=== PATIENT | male | born 1950 | race Hispanic/Latino ===

== ENCOUNTER → 2022-10-10 | Outpatient (CLI) | payer MEDICARE | END | disposition home or self-care (01) | LOC: SHCH 11:08 | PROVIDERS: ATTEND Internal Medicine | DX: Z04.89 Encounter for examination and observation for other specified reasons (principal); I48.0 Paroxysmal atrial fibrillation; I11.9 Hypertensive heart disease without heart failure | CPT/HCPCS: 71046; 93306 ==

== ENCOUNTER → 2022-12-09 | Outpatient (CLI) | payer MEDICARE ==
[~2022-12-09] MED LIST: LIDOCAINE HCL 4% LTA SOL 4 ML VIAL ONE
== END | disposition home or self-care (01) ==
LOC: WHH 09:46
PROVIDERS: ATTEND Nurse Practitioner Family
DX: L89.622 Pressure ulcer of left heel, stage 2 (principal); I48.91 Unspecified atrial fibrillation; I10 Essential (primary) hypertension; M10.09 Idiopathic gout, multiple sites; M19.90 Unspecified osteoarthritis, unspecified site; Z96.652 Presence of left artificial knee joint
CPT/HCPCS: 11042; A6209 ×2; A4450

== ENCOUNTER → 2022-12-16 | Outpatient (CLI) | payer MEDICARE ==
[~2022-12-16] MED LIST changes: +HONEY 1 APPL/ML TUBE TP ONE
== END | disposition home or self-care (01) ==
LOC: WHH 08:49
PROVIDERS: ATTEND Nurse Practitioner Family
DX: L89.622 Pressure ulcer of left heel, stage 2 (principal); I48.91 Unspecified atrial fibrillation; I10 Essential (primary) hypertension; M10.09 Idiopathic gout, multiple sites; M19.90 Unspecified osteoarthritis, unspecified site; Z96.652 Presence of left artificial knee joint; Z79.899 Other long term (current) drug therapy
CPT/HCPCS: G0463; A4450

== ENCOUNTER → 2022-12-23 | Outpatient (CLI) | payer MEDICARE | END | disposition home or self-care (01) | LOC: WHH 09:40 | PROVIDERS: ATTEND Nurse Practitioner Family | DX: L89.622 Pressure ulcer of left heel, stage 2 (principal); I10 Essential (primary) hypertension; I48.91 Unspecified atrial fibrillation; M19.90 Unspecified osteoarthritis, unspecified site; M10.09 Idiopathic gout, multiple sites; Z96.652 Presence of left artificial knee joint; Z79.899 Other long term (current) drug therapy | CPT/HCPCS: 11042; A6209 ==

== ENCOUNTER → 2023-01-06 | Outpatient (CLI) | payer MEDICARE ==
[~2023-01-06] MED LIST changes: -HONEY 1 APPL/ML TUBE TP ONE
== END | disposition home or self-care (01) ==
LOC: WHH 09:43
PROVIDERS: ATTEND Nurse Practitioner Family
DX: L89.622 Pressure ulcer of left heel, stage 2 (principal); I10 Essential (primary) hypertension; I48.91 Unspecified atrial fibrillation; M19.90 Unspecified osteoarthritis, unspecified site; M10.09 Idiopathic gout, multiple sites; Z96.652 Presence of left artificial knee joint; Z79.899 Other long term (current) drug therapy
CPT/HCPCS: 11042; A6209; A4450

== ENCOUNTER → 2023-01-27 | Outpatient (CLI) | payer MEDICARE | END | disposition home or self-care (01) | LOC: WHH 10:02 | PROVIDERS: ATTEND Nurse Practitioner Family | DX: L89.622 Pressure ulcer of left heel, stage 2 (principal); I10 Essential (primary) hypertension; I48.91 Unspecified atrial fibrillation; M19.90 Unspecified osteoarthritis, unspecified site; M10.09 Idiopathic gout, multiple sites; Z96.652 Presence of left artificial knee joint; Z79.899 Other long term (current) drug therapy | CPT/HCPCS: G0463; A6209; A4450 ==

== ENCOUNTER → 2023-02-03 | Outpatient (CLI) | payer MEDICARE | END | disposition home or self-care (01) | LOC: WHH 08:55 | PROVIDERS: ATTEND Nurse Practitioner Family | DX: L89.622 Pressure ulcer of left heel, stage 2 (principal); I10 Essential (primary) hypertension; I48.91 Unspecified atrial fibrillation; M19.90 Unspecified osteoarthritis, unspecified site; M10.09 Idiopathic gout, multiple sites; Z96.652 Presence of left artificial knee joint; Z79.899 Other long term (current) drug therapy | CPT/HCPCS: 11042; A6209; A6022 ==

== ENCOUNTER → 2023-02-10 | Outpatient (CLI) | payer MEDICARE | END | disposition home or self-care (01) | LOC: WHH 08:51 | PROVIDERS: ATTEND Nurse Practitioner Family | DX: L89.623 Pressure ulcer of left heel, stage 3 (principal); I10 Essential (primary) hypertension; I48.91 Unspecified atrial fibrillation; M19.90 Unspecified osteoarthritis, unspecified site; M10.09 Idiopathic gout, multiple sites; Z96.652 Presence of left artificial knee joint; Z79.899 Other long term (current) drug therapy | CPT/HCPCS: 11042; 87070; 87077 ×2; 87186 ×2; 73630; A6197; A6260 ==

== ENCOUNTER → 2023-02-17 | Outpatient (CLI) | payer MEDICARE | END | disposition home or self-care (01) | LOC: WHH 09:51 | PROVIDERS: ATTEND Nurse Practitioner Family | DX: L89.623 Pressure ulcer of left heel, stage 3 (principal); I10 Essential (primary) hypertension; I48.91 Unspecified atrial fibrillation; M19.90 Unspecified osteoarthritis, unspecified site; M10.09 Idiopathic gout, multiple sites; Z96.652 Presence of left artificial knee joint; Z79.899 Other long term (current) drug therapy | CPT/HCPCS: G0463; A6248; A6196 ==

== ENCOUNTER → 2023-02-24 | Outpatient (CLI) | payer MEDICARE ==
[~2023-02-24] MED LIST changes: +GENTAMICIN 15 GM CREAM TP ONE
== END | disposition home or self-care (01) ==
LOC: WHH 09:50
PROVIDERS: ATTEND Nurse Practitioner Family
DX: L89.623 Pressure ulcer of left heel, stage 3 (principal); I10 Essential (primary) hypertension; I48.91 Unspecified atrial fibrillation; M19.90 Unspecified osteoarthritis, unspecified site; M10.09 Idiopathic gout, multiple sites; Z96.652 Presence of left artificial knee joint; Z79.899 Other long term (current) drug therapy
CPT/HCPCS: 11042; A6197; A6022

== ENCOUNTER → 2023-03-03 | Outpatient (CLI) | payer MEDICARE ==
[~2023-03-03] MED LIST changes: -GENTAMICIN 15 GM CREAM TP ONE
== END | disposition home or self-care (01) ==
LOC: WHH 08:47
PROVIDERS: ATTEND Nurse Practitioner Family
DX: L89.623 Pressure ulcer of left heel, stage 3 (principal); I48.91 Unspecified atrial fibrillation; I10 Essential (primary) hypertension; M10.09 Idiopathic gout, multiple sites; M19.90 Unspecified osteoarthritis, unspecified site; Z96.652 Presence of left artificial knee joint; Z79.899 Other long term (current) drug therapy
CPT/HCPCS: 11042; A6248; A6022 ×2; A6197

== ENCOUNTER → 2023-03-17 | Outpatient (CLI) | payer MEDICARE | END | disposition home or self-care (01) | LOC: WHH 08:51 | PROVIDERS: ATTEND Nurse Practitioner Family | DX: L89.623 Pressure ulcer of left heel, stage 3 (principal); I48.91 Unspecified atrial fibrillation; I10 Essential (primary) hypertension; M10.09 Idiopathic gout, multiple sites; M19.90 Unspecified osteoarthritis, unspecified site; Z96.652 Presence of left artificial knee joint; Z79.899 Other long term (current) drug therapy | CPT/HCPCS: 11042 ==

== ENCOUNTER → 2023-03-24 | Outpatient (CLI) | payer MEDICARE | END | disposition home or self-care (01) | LOC: WHH 09:53 | PROVIDERS: ATTEND Nurse Practitioner Family | DX: L89.623 Pressure ulcer of left heel, stage 3 (principal); I48.91 Unspecified atrial fibrillation; I10 Essential (primary) hypertension; M19.90 Unspecified osteoarthritis, unspecified site; M10.09 Idiopathic gout, multiple sites; Z96.652 Presence of left artificial knee joint; Z79.899 Other long term (current) drug therapy | CPT/HCPCS: 11042; A6021; A6197 ==

== ENCOUNTER → 2023-03-30 | Outpatient (CLI) | payer MEDICARE | END | disposition home or self-care (01) | LOC: WHH 09:55 | PROVIDERS: ATTEND Nurse Practitioner Family | DX: L89.623 Pressure ulcer of left heel, stage 3 (principal); I48.91 Unspecified atrial fibrillation; I10 Essential (primary) hypertension; M19.90 Unspecified osteoarthritis, unspecified site; M10.09 Idiopathic gout, multiple sites; Z96.652 Presence of left artificial knee joint; Z79.899 Other long term (current) drug therapy | CPT/HCPCS: 11042; A6021; A6196; A4450 ==

== ENCOUNTER → 2023-04-13 | Outpatient (CLI) | payer MEDICARE ==
[~2023-04-13] MED LIST changes: +SILVER NITRATE APPLICATOR 1 SWAB TP ONE
== END | disposition home or self-care (01) ==
LOC: WHH 09:57
PROVIDERS: ATTEND Nurse Practitioner Family
DX: L89.623 Pressure ulcer of left heel, stage 3 (principal); I48.91 Unspecified atrial fibrillation; I10 Essential (primary) hypertension; M19.90 Unspecified osteoarthritis, unspecified site; M10.09 Idiopathic gout, multiple sites; Z96.652 Presence of left artificial knee joint; Z79.899 Other long term (current) drug therapy
CPT/HCPCS: 11042; 87070; 87077; 87186

== ENCOUNTER → 2023-04-21 | Outpatient (CLI) | payer MEDICARE | END | disposition home or self-care (01) | LOC: WHH 09:38 | PROVIDERS: ATTEND Nurse Practitioner Family | DX: L89.623 Pressure ulcer of left heel, stage 3 (principal); I48.91 Unspecified atrial fibrillation; I10 Essential (primary) hypertension; M19.90 Unspecified osteoarthritis, unspecified site; M10.09 Idiopathic gout, multiple sites; Z96.652 Presence of left artificial knee joint; Z79.899 Other long term (current) drug therapy | CPT/HCPCS: 11042; A6209 ==

== ENCOUNTER → 2023-04-28 | Outpatient (CLI) | payer MEDICARE ==
[~2023-04-28] MED LIST changes: -SILVER NITRATE APPLICATOR 1 SWAB TP ONE
== END | disposition home or self-care (01) ==
LOC: WHH 08:40
PROVIDERS: ATTEND Nurse Practitioner Family
DX: L89.623 Pressure ulcer of left heel, stage 3 (principal); I48.91 Unspecified atrial fibrillation; I10 Essential (primary) hypertension; M19.90 Unspecified osteoarthritis, unspecified site; M10.09 Idiopathic gout, multiple sites; Z96.652 Presence of left artificial knee joint; Z79.899 Other long term (current) drug therapy
CPT/HCPCS: G0463; A4450

== ENCOUNTER → 2023-05-04 | Outpatient (CLI) | payer MEDICARE | END | disposition home or self-care (01) | LOC: WHH 09:25 | PROVIDERS: ATTEND Nurse Practitioner Family | DX: L89.623 Pressure ulcer of left heel, stage 3 (principal); I48.91 Unspecified atrial fibrillation; I10 Essential (primary) hypertension; M19.90 Unspecified osteoarthritis, unspecified site; M10.09 Idiopathic gout, multiple sites; Z96.652 Presence of left artificial knee joint; Z79.899 Other long term (current) drug therapy | CPT/HCPCS: G0463 ==

== ENCOUNTER → 2023-06-08 | Outpatient (CLI) | payer MEDICARE | END | disposition home or self-care (01) | LOC: RAH 12:31 | PROVIDERS: ATTEND Internal Medicine | DX: I42.9 Cardiomyopathy, unspecified (principal) | CPT/HCPCS: 93308 ==